=== PATIENT | female | born 1975 | race Caucasian/White ===

== ENCOUNTER 2022-02-14 20:04 | Emergency (ER) | payer OTHER ==
[2022-02-14] MEDS ORDERED: Lidocaine 1% 5 ML VIAL INJECT ONE (20:19)
[2022-02-14] MEDS ORDERED: Diphtheria,Pertussis(Acell),Tetanus Vaccine 0.5 ML Syringe IM ONE (20:29)
== END 2022-02-14 20:52 | disposition home or self-care (01) ==
LOC: VM.ED 20:04
DX: S61.213A Laceration without foreign body of left middle finger without damage to nail, initial encounter (principal); Z23 Encounter for immunization; W23.1XXA Caught, crushed, jammed, or pinched between stationary objects, initial encounter
CPT/HCPCS: 12001; 90471; 90715; 99283; 99283-25